=== PATIENT | female | born 1970 | race Caucasian/White ===

== ENCOUNTER 2025-03-11 17:36 | Emergency (ER) | payer MEDICAID, SELFPAY ==
--- NOTE | ~2025-03-11 | XR_ITS ---
CLINICAL HISTORY: fall, pain 4 view, pelvis and left hip Comparison: None Findings: No acute fracture or dislocation. Mild bilateral hip osteoarthritis. The soft tissues are unremarkable. IMPRESSION: No acute findings. This document has been electronically signed by: Priscila Priest MD on 03/11/2025 18:55:11
--- NOTE | ~2025-03-11 | XR_ITS ---
CLINICAL HISTORY: fall, pain 4 view left knee Comparison: None Findings: No fractures or dislocations. Tricompartmental osteoarthritis. No joint effusion. No radiopaque foreign body. IMPRESSION: 1. No acute osseous injury. This document has been electronically signed by: Priscila Priest MD on 03/11/2025 18:52:20
[2025-03-11 17:51] VITALS: PULSE 121; O2SAT 97
[2025-03-11 17:53] VITALS: BP 128/81; PULSE 94; RESP 19; TEMP 36.7; O2SAT 97; BMI 25.4
--- NOTE | 2025-03-11 17:58 | ED_ITS ---
HPI - Extremity Injury (Lower) General Chief Complaint: Extremity Injury, Lower Stated Complaint: Leg pain Time Seen by Provider: 03/11/25 17:51 Source: patient and EMS Mode of arrival: EMS Limitations: no limitations History of Present Illness ED Provider: etienne leger np HPI Narrative: lilly is a 54 year old female presents with diffuse left leg pain. 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 Police reportedly picked her up by the arms and she then began complaining of left leg pain. She reports to me that she has chronic pain from arthritis but is now worrse, diffuse, with increase pain at hip and knee. states she takes aleve for pain. she is very anxious, tearful, hyperventilating which calms with verbal instruction. States she takes klonopin three time daily but has not yet taken it today. Denies recreational drug or alcohol usage. Related Data Allergies Allergy/AdvReac Type Severity Reaction Status Date / Time No Known Allergies Allergy Verified 03/11/25 17:59 Review of Systems Review of Systems: Yes all other systems are reviewed and are negative PMFSH Past Medical History Attestation statement: The following information was validated with the patient. Source: old records reviewed Social History Social History Advance Directives: No Advance Directives Information Provided: No Patient : No Physical Exam Vital Signs: Vital Signs: Last Vital Signs Temp 98.7 F 03/11/25 20:59 Pulse 73 03/11/25 20:59 Resp 16 03/11/25 20:59 BP 108/66 03/11/25 20:59 Pulse Ox 97 03/11/25 20:59 O2 Del Method Room Air 03/11/25 20:59 BMI result Body Mass Index 25.4 Appearance: Alert.? Anxious, tearful. Eyes: Pupils equal, round and reactive to light.? ENT: Pharynx normal.?? Neck: Normal inspection.? Neck supple.?? CVS: Heart sounds normal. Normal heart rate and rhythm.? Pulses normal.?? Respiratory: No respiratory distress.? Lung sounds clear to auscultation bilaterally?? Abdomen: Soft and non-tender. Normoactive bowel sounds. ? Skin: Skin warm and dry.? Normal skin color.? Extremities: No lower extremity edema.? No calf ttp. Decreased AROM to hip/knee, full AROM to ankle. 2+ DP/PT pulse. Compartments are soft. No obvious deformity. No shortening or rotation Neuro: Moves all extremities spontaneously. Sensation intact bilaterally. CN II- XII intact. No focal neuro deficits. Course Reevaluation(s) Reevaluation #1: X-ray is without acute pathology no evidence of fracture dislocation. Patient requesting to be discharged at this time. She states that she is not able to bear weight on the left leg. She states that this is typical when she has a flare of her arthritis pain. Reports that she follows with an antenna specialist in [place] does not know which 1. She is requesting crutches at this time. I have noted her to have full range of motion to the hip and knee. She would not even attempt to place weight on the left leg stating that she knows it will only further exacerbate her pain. She was provided with crutches and instructed on appropriate usage. At this time feel that she is stable for discharge. Medications Administered Discontinued Medications Generic Name Dose Route Start Last Admin Trade Name Fabrizioq PRN Reason Stop Dose Admin Clonazepam 1 mg 03/11/25 17:57 03/11/25 18:27 Clonazepam 1 Mg Tablet PO 03/11/25 17:58 1 mg ONCE ONE Administration Naproxen 500 mg 03/11/25 17:57 03/11/25 18:27 Naproxen 500 Mg Tablet PO 03/11/25 17:58 500 mg ONCE ONE Administration Medical Decision Making Medical Decision Making [facility] Narrative: Patient is a 54-year-old female with reported past medical history of anxiety and arthritis who presents emergency department with report of left lower extremity pain as per HPI. There is no obvious deformity of the extremity and it is neurovascularly intact distally. Wells score low risk for DVT. Decreased AROM at the has been knee, will obtain XR to evaluate for fracture/dislocation. Given the dropping to the floor following her arrest, pain may be secondary to a sprain as well. She is very anxious, able to be calmed with verbal instruction but quickly becomes very tearful and hyperventilating yelling about police. 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 Differential Diagnosis Differential Diagnoses: The differential diagnosis associated with the presentation includes (Fracture, dislocation, contusion, sprain, acute on chronic arthritic pain) Independent Interpretation I performed an independent interpretation of an: Plain X-Ray (See course narrative) Radiology Impression Discussion of test interpretation with radiology: I have reviewed the radiologist's reading. Radiologist Impression: 4 view, pelvis and left hip Comparison: None Findings: No acute fracture or dislocation. Mild bilateral hip osteoarthritis. The soft tissues are unremarkable. IMPRESSION: No acute findings. 4 view left knee Comparison: None Findings: No fractures or dislocations. Tricompartmental osteoarthritis. No joint effusion. No radiopaque foreign body. IMPRESSION: 1. No acute osseous injury. Independent Historian Clinical information obtained from an independent historian. History obtained from or confirmed by: EMS Prescription Management I considered prescription management with: Pain Medication Chronic Conditions Patient?s care impacted by: Other (See narrative above) Discharge Plan Discharge Clinical Impression: Knee sprain, Chronic leg pain Patient Disposition: Home, Self-Care Instructions: P.R.I.C.E. Treatment (ED) Additional Instructions: You were evaluated in the emergency department with report of left leg pain, increased from your baseline due to reported history of arthritis. You had an x-ray done of your hip and knee which did not show any acute fracture or dislocation. You were given your prescribed dose of Klonopin as well as naproxen. You requested crutches at the time of discharge which you were privded with. Please follow-up with your doctors. Return with any new or worsening symptoms or concerns. Referrals: Physician,Unknown J [Primary Care Provider] - Interventions: ED Discharge Assessment Last Done: 03/11/25 20:59 Print Language: Greenlandic
[2025-03-11] MEDS: clonazePAM 1 MG TABLET PO (18:27)
[2025-03-11] MEDS: NaPROXEN 500 MG TABLET PO (18:27)
[2025-03-11 20:59] VITALS: BP 108/66; PULSE 73; RESP 16; TEMP 37.1; O2SAT 97
== END 2025-03-11 20:59 | disposition home or self-care (01) ==
PROVIDERS: Emergency Provider Emergency Medicine
DX: R45.1 Restlessness and agitation (principal); G89.29 Other chronic pain; M79.605 Pain in left leg; S83.92XA Sprain of unspecified site of left knee, initial encounter; Y35.813A Legal intervention involving manhandling, suspect injured, initial encounter; Y93.89 Activity, other specified; Y92.59 Other trade areas as the place of occurrence of the external cause; Y99.8 Other external cause status
CPT/HCPCS: 73502; 73564; 99283; 99284

== ENCOUNTER → 2025-03-11 17:58 | Outpatient (BNV) | payer MEDICAID, SELFPAY | PROVIDERS: Emergency Provider Emergency Medicine; Visit Provider Radiology Diagnostic Radiology | DX: M25.562 Pain in left knee (principal); M25.552 Pain in left hip | CPT/HCPCS: 73502; 73564 ==